=== PATIENT | female | born 1985 | race Caucasian/White ===

== ENCOUNTER → 2018-04-12 10:32 | Outpatient (CLI) | payer OTHER, SELFPAY ==
[2018-04-12 12:21] LABS: Hematocrit 32.6 % (36-46)
[2018-04-12 12:37] LABS: GTT (PREG) 1 Hour PP 50gm Dose 92 mg/dL (76-139)
== END ==
PROVIDERS: Family Provider Internal Medicine; PCP Internal Medicine; Visit Provider Specialist
DX: Z34.92 Encounter for supervision of normal pregnancy, unspecified, second trimester (principal); Z3A.26 26 weeks gestation of pregnancy
CPT/HCPCS: 36415; 82950; 85014; 85018

== ENCOUNTER 2018-05-31 10:44 | Outpatient (CLI) | payer OTHER, SELFPAY ==
--- NOTE | 2018-05-31 11:37 | PM.OBTRLD ---
Visit Information Visit Information Date of evaluation: 05/31/18 Primary OB Provider: Lola Rondon Reason for Evaluation: Yes pre-term labor Vital Signs Vital Signs: Blood pressure 137/77, pulse of 83, temperature 97.1? PFSH Medical History History of frequent headaches (Chronic ~2008) Surgical History Anesthesia (Inactive) History of third molar tooth extraction (~2002) History of tonsillectomy (~2005) Status post dilation and curettage (~2013) Family History Father Age: 61 Hypertension Mother Age: 59 Mental health problem Social History Smoking Status: Never smoker Evaluation Evaluation Baseline heart rate: 150 (both) Variability: Moderate (11-25) monitor accelerations: Present monitor decelerations: Absent Contraction Frequency (minutes): 10 Uterine Contraction Intensity: Mild Category of Tracing: I Diagnosis, Plan/Disposition Final Diagnosis (1) 33 weeks gestation of : Current Visit: No Status: Acute (2) Dichorionic diamniotic twin in third trimester: Current Visit: No Status: Acute (3) Premature uterine contractions causing threatened premature labor in third trimester: Current Visit: No Status: Acute Plan/Disposition Plan: Patient came in with back pain radiating to the front wanted to make sure she was not in premature labor. Patient with no significant contractions on the monitor. Reassured no evidence of labor. Likely musculoskeletal pain. OB Disposition: home
== END 2018-05-31 11:52 | disposition home or self-care (01) ==
LOC: LABOR 11:43 → OB 06-01 09:27
PROVIDERS: Family Provider Internal Medicine; PCP Internal Medicine; Visit Provider Specialist
DX: Z3A.33 33 weeks gestation of pregnancy (principal); O30.043 Twin pregnancy, dichorionic/diamniotic, third trimester; O47.03 False labor before 37 completed weeks of gestation, third trimester
CPT/HCPCS: 59025; G0378; G0379

== ENCOUNTER → 2018-06-02 13:44 | Outpatient (CLI) | payer OTHER, SELFPAY ==
[2018-06-03 14:42] LABS: Strep Grp B PCR NEG for Grp B Strep
== END ==
PROVIDERS: Family Provider Internal Medicine; PCP Internal Medicine; Visit Provider Specialist
DX: Z3A.34 34 weeks gestation of pregnancy (principal)
CPT/HCPCS: 87653

== ENCOUNTER 2018-06-07 17:06 | Observation (INO) | payer OTHER, SELFPAY ==
--- NOTE | 2018-06-07 | DI.US.S_ITS ---
PROCEDURE: US OB LIMITED INDICATIONS: SPOTTING; KNOWN MARGINAL PREVIA OUTSIDE/PRIOR DATING DATA: Last menstrual period (LMP): 10/06/17. LMP-based estimated date of delivery (HIRAM): 07/13/18. First dating scan (date and location): 03/11/18. Estimated date of delivery (HIRAM) from first dating scan: 07/12/18. TECHNIQUE: Real-time scanning was performed of the fetus, with image documentation. Endovaginal scanning: Yes [facility] TWINS > 14 WEEKS, 06/02/2018, 12:18. FINDINGS: Twin living intrauterine gestations are present. Twin A Presentation: Vertex right Placenta: Placental position is posterior and is low in position, and is 3.4 cm from the internal os. Amniotic fluid index: 10.9 cm, normal range is 5-24 cm. heart rate: 140 beats per minute. Twin B Presentation: Breech, left Placenta: Placenta location is anterior fundal, without previa. Amniotic fluid index is 5.4 cm, normal range is 5-24 cm. heart rate: 135 beats per minute Maternal cervical canal: 3.3 cm long. Normal lower limit is 2.5 cm. Estimated gestational age from initial scan: 35 weeks zero days. IMPRESSION: 1. Twin live intrauterine gestations as described in detail above. No evidence of placenta abruption. 2. Twin A's placenta is posterior and low in position, not significantly changed from prior study. Dictated by: Oscar Hawkins M.D. on 06/07/2018 at 20:42 Approved by: Oscar Hawkins M.D. on 06/07/2018 at 20:48
--- NOTE | 2018-06-07 18:34 | P.TNLD_ITS ---
Visit Information Visit Information Date of evaluation: 06/07/18 Primary OB Provider: Lola Rondon On-call OB Provider: Kayla Judd Reason for Evaluation: Yes other Comments/Additional reasons for admission: Pt presented with vaginal bleeding earlier this afternoon. She reports that she went to the bathroom and had some bright red blood in her tissue and on her panty liner. No significant bleeding since that time. She denies any contractions or LOF. She is still feeling her babies move regularly. She denies any vaginal bleeding earlier in her , but does have known marginal placenta previa. [facility] Medical History History of frequent headaches (Chronic ~2008) Surgical History Anesthesia (Inactive) History of third molar tooth extraction (~2002) History of tonsillectomy (~2005) Status post dilation and curettage (~2013) Family History Father Age: 61 Hypertension Mother Age: 59 Mental health problem Social History Smoking Status: Never smoker Objective Imaging US OB Limited: Radiologist's impression: 1. Twin live intrauterine gestations as described in detail above. No evidence of placenta abruption. 2. Twin A's placenta is posterior and low in position, not significantly changed from prior study. Evaluation Evaluation Comments: Baby A - baseline 145, moderate variability, accels present, no decels ; reactive Baby B - baseline 150, moderate variability, accels present, no decels; reactive [place] - uterine irritability not felt by pt, no regular contractions Diagnosis, Plan/Disposition Final Diagnosis (1) 34 weeks gestation of : Current Visit: No Status: Acute (2) Dichorionic diamniotic twin in third trimester: Current Visit: No Status: Acute (3) Marginal placenta previa: Current Visit: No Status: Acute (4) Vaginal bleeding: Current Visit: No Status: Acute Plan/Disposition Plan: 33yo at 34w6d here with vaginal bleeding in di-di twin with marginal placenta previa. Bleeding minimal, no recurrence since initial episode. FHT reassuring, no significant contractions seen on monitoring or felt by patient. As per audiovisual lead technician (although not in official report), cervical length normal. Placenta remains low-lying, but not other abnormalities seen. Discussed with Dr Salazar as well. Pt stable fo d/c home. Pelvic rest. F/U with Dr Rondon as scheduled later this week. OB Disposition: home
[2018-06-07 18:55] LABS: Bacteria Urine None Seen; WBC Urine None Seen (0-5/HPF)
[2018-06-07 18:57] LABS: Appearance Urine UA CLEAR; Bilirubin Urine UA NEGATIVE (NEGATIVE); Color Urine UA YELLOW; Glucose Urine UA NEGATIVE (Normal); Ketones Urine UA NEGATIVE (NEGATIVE); Leukocyte Esterase Urine UA NEGATIVE (NEGATIVE); Nitrite Urine UA NEGATIVE (Negative); Occult Blood Urine UA 3+ (Negative); Protein Urine UA NEGATIVE (Negative); Specific Gravity Urine UA <=1.005 (1.000-1.035); Urobilinogen Urine UA 0.2 E.U./dL (0.2)
[2018-06-07 19:04] LABS: Culture Indicated Urine Cult Not Indicated; RBC Urine 5-10/HPF (0-5/HPF)
== END 2018-06-07 20:26 | disposition home or self-care (01) ==
LOC: LABOR 17:10
PROVIDERS: Admitting Provider Specialist; Visit Provider Specialist
DX: Z3A.33 33 weeks gestation of pregnancy (principal); Z3A.34 34 weeks gestation of pregnancy; O30.043 Twin pregnancy, dichorionic/diamniotic, third trimester; O44.20 Partial placenta previa NOS or without hemorrhage, unspecified trimester; N93.9 Abnormal uterine and vaginal bleeding, unspecified
CPT/HCPCS: 59025; 59050; 76812; 76815; 81001; G0378; G0379

== ENCOUNTER 2018-06-17 15:59 | Outpatient (CLI) | payer OTHER, SELFPAY ==
--- NOTE | 2018-06-17 16:32 | PM.OBTRLD ---
Visit Information Visit Information Date of evaluation: 06/17/18 Primary OB Provider: Lola Rondon Reason for Evaluation: Yes non-stress test Comments/Additional reasons for admission: Bleeding at 36 weeks with twin gestation ON LICENSE OF [facility] Medical History History of frequent headaches (Chronic ~2008) Surgical History Anesthesia (Inactive) History of third molar tooth extraction (~2002) History of tonsillectomy (~2005) Status post dilation and curettage (~2013) Family History Father Age: 61 Hypertension Mother Age: 59 Mental health problem Social History Smoking Status: Never smoker Evaluation Evaluation Baseline heart rate: 150 Variability: Moderate (11-25) (Both) monitor accelerations: Present (Both) monitor decelerations: Absent (Both) Contraction Frequency (minutes): 5 Uterine Contraction Intensity: Mild Category of Tracing: I Diagnosis, Plan/Disposition Final Diagnosis (1) Vaginal bleeding: Current Visit: No Status: Acute (2) Marginal placenta previa: Current Visit: No Status: Acute (3) Dichorionic diamniotic twin in third trimester: Current Visit: No Status: Acute Plan/Disposition Plan: Patient will be discharged home to return if she has any increase in bleeding, pain or decreased movement. OB Disposition: home
== END 2018-06-17 16:45 | disposition home or self-care (01) ==
LOC: OB 06-20 14:01
PROVIDERS: Family Provider Internal Medicine; PCP Internal Medicine; Visit Provider Specialist
DX: Z34.83 Encounter for supervision of other normal pregnancy, third trimester (principal); O30.043 Twin pregnancy, dichorionic/diamniotic, third trimester; O44.20 Partial placenta previa NOS or without hemorrhage, unspecified trimester; N39.9 Disorder of urinary system, unspecified
CPT/HCPCS: 59025; G0378; G0379

== ENCOUNTER 2018-06-23 05:39 | Inpatient (IN) | payer OTHER, SELFPAY ==
[2018-06-23] VITALS (9 sets, daily range): BP systolic 91–122; BP diastolic 62–80; PULSE 61–67; RESP 12–14; TEMP 36.4–36.7; O2SAT 95–99
[2018-06-23 06:33] LABS: Add Manual Diff / Slide Review NO; Basophils Percent Auto 0.5 % (0-2); Hematocrit 37.5 % (36-46); Hemoglobin 12.4 g/dL (12.0-16.0); Mean Corpuscular HGB Conc 33.1 % (30-36); Mean Corpuscular Hemoglobin 28.7 PG (26-34); Mean Corpuscular Volume 86.8 fL (80-100); Monocytes Percent Auto 7.5 % (3-14); Neutrophils Absolute Auto 10200 /uL (1500-7000); Platelet Count 227 X10^3/uL (150-400); Red Blood Cell Count 4.32 X10^6/uL (4.0-5.2); Red Cell Distribution Width 14.1 % (11.6-14.8); White Blood Cell Count 13.8 X10^3/uL (4.5-11.0)
--- NOTE | 2018-06-23 06:44 | PM.PREOP ---
Pre-operative Note Interval Note Pre-op Check: Yes History & Physical exam performed today by Physician Changes: No
--- NOTE | 2018-06-23 06:46 | P.HPOB_ITS ---
OB HPI Date/Time Date of admission: 06/23/18 Date Patient Seen: 06/23/18 Time Patient Seen: 06:44 History of Present Condition Chief complaint: [id number] : 4 Para: 2 Estimated Date of Delivery: 07/13/18 Estimated Gestational Age (weeks): 37 Narrative: Charmaine Peck is a 33 year old female admitted for primary low -transverse section for twin gestation with marginal previa Indications Operative indications ( section): multiple gestation Other reason(s) for admission: Marginal previa History of Present care: good care Dating criteria: LMP confirmed by 1st trimester US Ultrasounds: normal mid trimester US Obstetrical complications: none Medical complications: none Preadmission Labs Blood type: A (+) positive -: Antibody screen: negative, GBS status: negative, HBsAG: negative and HIV: negative -: Chlamydia screen: not detected and Gonorrhea screen: not detected -: Rubella: immune PAP: Normal 1 hr GTT: 92 Prior (ies) History: 10/12/2012 40 week gestation female 6 lb 2 oz 12/19/2013 SAB 12/31/2014 at 39 week gestation 7 lb 4 oz female Evaluation Evaluation Baseline heart rate: 130 (135) Variability: Moderate (11-25) (Both) monitor accelerations: Present (Both) monitor decelerations: Absent Category of Tracing: I Laboratory results: Laboratory Tests 06/23/18 06:20 WBC 13.8 H RBC 4.32 Hgb 12.4 Hct 37.5 MCV 86.8 MCH 28.7 MCHC 33.1 RDW 14.1 Plt Count 227 Neut % (Auto) 74.0 Lymph % (Auto) 16.0 L [place] % (Auto) 7.5 Eos % (Auto) 2.0 Baso % (Auto) 0.5 Neut # (Auto) 43099 H PFSH Medical History History of frequent headaches (Chronic ~2008) Surgical History Anesthesia (Inactive) History of third molar tooth extraction (~2002) History of tonsillectomy (~2005) Status post dilation and curettage (~2013) Family History Father Age: 61 Hypertension Mother Age: 59 Mental health problem Social History Smoking Status: Never smoker Meds Home Medications Medication Instructions Recorded Confirmed Type vit-iron fum-folic ac 1 cap PO QDAY #100 cap 04/27/17 12/06/17 Rx [Mynatal] omeprazole 40 mg PO QDAY PRN #30 cap 09/06/17 12/06/17 Rx folic acid 1 mg tablet 4 mg PO DAILY 90 Days #360 tab 12/02/17 12/06/17 Rx albuterol sulfate 90 mcg/actuation 2 puff INHALATION Q4-6H PRN #1 each 04/21/18 Rx breath activated powder inhaler codeine 10 mg-guaifenesin 100 mg/5 10 ml PO Q4-6H PRN #500 ml 05/24/18 Rx mL oral liquid bupropion HCl 100 mg tablet 100 mg PO QDAY #90 tab 05/31/18 Rx Allergies Allergy/AdvReac Type Severity Reaction Status Date / Time No Known Drug Allergies Allergy Verified 05/31/18 10:02 Review of Systems Review of Systems Patient does not currently have active bleeding. No signs or symptoms of preeclampsia. All systems reviewed & are unremarkable except as noted in HPI and below Exam Vital Signs (past 8 hours): - 06/23/18 05:55 Blood Pressure 120/80 Narrative Exam Narrative: HEENT exam within normal limits. Lungs are clear to auscultation percussion. Heart is regular rate and rhythm no S3-S4 or murmurs. Abdomen is soft, gravid. The extremities are without edema and nontender Objective Labs Result Diagrams: 06/23/18 06:20 Labs: Laboratory Results - last 24 hr 06/23/18 06:20 WBC 13.8 H RBC 4.32 Hgb 12.4 Hct 37.5 MCV 86.8 MCH 28.7 MCHC 33.1 RDW 14.1 Plt Count 227 Neut % (Auto) 74.0 Lymph % (Auto) 16.0 L [place] % (Auto) 7.5 Eos % (Auto) 2.0 Baso % (Auto) 0.5 Neut # (Auto) 50785 H Assessment and Plan (1) Marginal placenta previa: Current visit: No Status: Acute (2) Dichorionic diamniotic twin in third trimester: Current visit: No Status: Acute (3) 37 weeks gestation of : Current visit: Yes Status: Acute Plan: Plan: Dichorionic diamniotic twin gestation with marginal previa with here for primary low-transverse section
[2018-06-23] MEDS: LACTATED RINGERS 1,000 ML 100 ML IV ×3 (07:01→12:45)
[2018-06-23 07:43] LABS: Hepatitis B Surface Antigen NEGATIVE s/c (NEGATIVE); Rubella Antibody IgG 45.1 IU/mL (>15)
[2018-06-23 07:50] LABS: HIV 1 and 2 Antibody NEGATIVE (NEGATIVE)
[2018-06-23] MEDS: CEFAZOLIN 2 GM/100 ML FROZ.PIGGY IV (08:05)
--- NOTE | 2018-06-23 09:01 | SUR.OPER ---
Supine on Padded OR bed, head on pillow, safety belt at thigh, arms secured on padded arm boards at <90 degrees abduction. Bump under right buttock. Legs uncrossed with pillow under knees, gel pad to heels, tape over blanket to lower legs.
[2018-06-23] MEDS: OXYTOCIN 10 UNIT/ML VIAL IM (09:08)
--- NOTE | 2018-06-23 09:20 | P.OP_ITS ---
Operative Date/Time/Diagnoses Date of procedure: 06/23/18 Time of procedure: 09:14 Pre-op diagnosis: Dichorionic, diamniotic twin gestation 37 weeks with marginal previa Post-op diagnosis: same Procedure & Clinicians Procedure: Primary low-transverse section Same procedure as scheduled: Yes Indications: Dichorionic diamniotic twin gestation with marginal previa at 37 weeks Surgeon: Lola Rondon Roll Handler: Vanessa Salazar Click Yes if Unassisted: No Anesthesia Type: Spinal Operative Notes Findings: Normal tubes ovaries and uterus. Viable male infants weighing 5 lb 10 oz and 6 lb 3 oz. Baby A Apgars 8 and 9, baby B Apgars 7 and 9 Closure Type: primary Specimen(s): other (Placenta) Applied: catheter Estimated Blood Loss (mL): 350 Blood products transfused: none Procedure in detail: The patient was brought to the operating room where she underwent a spinal for anesthesia. She was placed in a supine position with a left lateral tilt. A [place] catheter was placed. Pulsatile stockings were placed and functional throughout the case. 2 g of Ancef were given IV prior to the incision. Warming was in place. The patient was prepped and draped in usual sterile fashion. A low transverse incision was made with a scalpel and the incision was carried down to the fascial layer which was incised transversely with scissors. The midline attachments are superiorly and inferiorly. Some bleeding was controlled Bovie. The rectus muscles were in the midline and the peritoneal incision was made with no damage to internal structures. The peritoneum was incised and superiorly and inferiorly. Bladder blade was placed and a bladder flap was developed and the bladder held away from the lower uterine segment. An incision was made in the uterus with the scalpel and the incision was extended with stretching. The head of baby A was elevated out of the abdomen and with fundal pressure the baby was delivered. The infant was bulb suctioned for clear fluid and handed off to the warmer. Cord blood was collected. The bag of water of baby B was ruptured. The feet were grasped and the delivered delivered to the shoulders. A moist towel was placed around the and the arms were delivered followed by delivery of the head with fundal pressure. The infant was bulb suctioned for clear fluid and handed off to the warmer. The placenta delivered spontaneously with traction. The uterus was cleaned with clean laps. The uterine incision was closed in 2 layers of 0 chromic suture the first a running locking layer the second an imbricating layer. The bladder peritoneum was repaired with 2-0 Polysorb suture. The gutters were cleaned of any remaining fluids and ovaries and tubes were observed to be normal. Adequate hemostasis was noted after IV Pitocin and intramuscular Pitocin in the uterus. This had been an air when the Pitocin was given instead of Hemabate which was asked for. The perineum was closed with 2-0 Polysorb suture. The fascia layer was closed with 0 Polysorb suture with 2 stitches. The incision was irrigated and adequate hemostasis noted. The incision was closed with interrupted 3-0 Polysorb sutures and then a subcuticular stitch of 4-0 Polysorb suture. Steri- Strips were placed. The uterus was massaged to remove any clots. The patient went to recovery room in good condition. Counts of instruments and sponges were correct. Complications: none Condition: stable Disposition: other ( Center) Plan for aftercare: Routine post section
--- NOTE | 2018-06-23 09:35 | SUR.PHASEI ---
[id number] REPORT CALLED TO [facility] IN CENTER. PT DENIES ANY PAIN OR DISCOMFORT, BEKAH PAD CHANGED X1 IN PACU FOR MOD AMT OF DRAINAGE, AQUA CELL DRESSING WITH SCANT DRAINAGE NOTED, ZAMAN EMPTIED FOR 275 CC CLEAR YELLOW URINE, PT TO CENTER, HAND OFF OF CARE TO CENTER RN.
[2018-06-23] MEDS: ACETAMINOPHEN 325 MG TABLET 650 MG PO ×2 (12:06→18:25)
[2018-06-23] MEDS: LANOLIN OINT 7 GM 1 APPLIC TOP (12:43)
[2018-06-23] MEDS: KETOROLAC 30 MG/ML VIAL IV ×2 (15:00→21:04)
[2018-06-23] MEDS: ONDANSETRON 4 MG/2 ML INJ IV (15:15)
[2018-06-23] MEDS: METOCLOPRAMIDE 10 MG/2 ML INJ IV (16:24)
[2018-06-23] MEDS: DOCUSATE 250 MG CAPSULE PO (18:25)
[2018-06-24 00:08] VITALS: TEMP 36.5
[2018-06-24] MEDS: ACETAMINOPHEN 325 MG TABLET 650 MG PO ×4 (00:08→20:46)
[2018-06-24 00:30] VITALS: TEMP 36.7
[2018-06-24 03:16] VITALS: TEMP 36.7
[2018-06-24] MEDS: KETOROLAC 30 MG/ML VIAL IV (03:16)
[2018-06-24] MEDS: buPROPion 100 MG TABLET PO (08:35)
[2018-06-24] MEDS: IBUPROFEN 600 MG TABLET PO ×3 (11:51→23:45)
--- NOTE | 2018-06-24 13:26 | P.PN_ITS ---
Subjective Date Patient Seen: 06/24/18 Time Patient Seen: 13:24 Interval history: Postoperative day #1 Primary section for twins with marginal placenta previa. Patient is ambulatory. She is urinating after [place] catheter removed. She denies any nausea. She denies any signs or symptoms of preeclampsia. Her pain is tolerable. Exam Vital Signs (past 8 hours): Blood pressure 136/61, pulse 77, temperature 98.1? Oxygen Delivery Method Room Air Narrative Exam Narrative: Patient's abdomen is soft, appropriately tender. Uterus is firm , at U, appropriately tender. Mild lochia. Extremities without edema and nontender. Objective Labs Result Diagrams: 06/23/18 06:20 Assessment & Plan (1) Delivery by section using transverse incision of lower segment of uterus: Current visit: Yes Status: Acute Plan: Assessment/Plan Narrative: Patient is doing well post section. Plan is for routine post C- section care.
[2018-06-24 15:21] LABS: Add Manual Diff / Slide Review NO; Basophils Percent Auto 0.2 % (0-2); Eosinophils Percent Auto 1.3 % (2-4); Hematocrit 33.9 % (36-46); Hemoglobin 11.4 g/dL (12.0-16.0); Lymphocytes Percent Auto 11.2 % (25-40); Mean Corpuscular HGB Conc 33.5 % (30-36); Mean Corpuscular Hemoglobin 29.1 PG (26-34); Mean Corpuscular Volume 86.8 fL (80-100); Monocytes Percent Auto 4.7 % (3-14); Neutrophils Absolute Auto 15600 /uL (1500-7000); Neutrophils Percent Auto 82.6 % (50-75); Platelet Count 261 X10^3/uL (150-400); Red Blood Cell Count 3.91 X10^6/uL (4.0-5.2); Red Cell Distribution Width 14.1 % (11.6-14.8); White Blood Cell Count 18.8 X10^3/uL (4.5-11.0)
[2018-06-24] MEDS: guaiFENesin Liquid 100 MG/5 ML UDC 10 MG PO ×2 (17:40→23:48)
[2018-06-24 18:40] LABS: RPR Screen Nonreactive (Nonreactive)
[2018-06-24] MEDS: DOCUSATE 250 MG CAPSULE PO (20:47)
[2018-06-25] MEDS: ACETAMINOPHEN 325 MG TABLET 650 MG PO (07:07)
[2018-06-25] MEDS: IBUPROFEN 600 MG TABLET PO (07:07)
[2018-06-25] MEDS: buPROPion 100 MG TABLET PO (09:39)
[2018-06-25] MEDS: DOCUSATE 250 MG CAPSULE PO (09:40)
--- NOTE | 2018-06-25 10:56 | P.DS_ITS ---
Discharge Providers Date of admission: 06/23/18 05:39 Primary care physician: BERNADETTE Ingram Consults: 06/23/18 09:04 Consult to Energy And Conservation Technician Routine Comment: Discharge provider: Lola Rondon MD Discharge Date: 06/25/18 Summary Date Patient Seen: 06/25/18 Time Patient Seen: 10:55 Hospital Course: Patient was admitted for primary section for twin gestation with marginal previa at 37 weeks. Both the mother and infant are doing well. Patient is ambulatory. Tolerating regular diet. Passing gas. Pain is under control. Blood pressure 126/67, pulse of 90, temperature 36.7? Patient's abdomen is soft, nontender. Uterus is firm, at U, appropriately tender. Incision is clean dry and intact. Mild lochia. Extremities without edema and nontender. Patient is Rh positive and rubella immune Discharge Diagnosis (1) Delivery by section using transverse incision of lower segment of uterus: Status: Acute Time Spent with Patient Total time spent providing and/or coordinating discharge services: Objective Labs Result Diagrams: 06/24/18 14:12 Labs: Laboratory Results - last 24 hr 06/23/18 06/24/18 06:20 14:12 WBC 18.8 H RBC 3.91 L Hgb 11.4 L Hct 33.9 L MCV 86.8 MCH 29.1 MCHC 33.5 RDW 14.1 Plt Count 261 Neut % (Auto) 82.6 H Lymph % (Auto) 11.2 L [place] % (Auto) 4.7 Eos % (Auto) 1.3 L Baso % (Auto) 0.2 Neut # (Auto) 60055 H Serum VDRL Nonreactive Discharge Plan Discharge Plan Patient Disposition: Home Discharge Med Rec/Prescriptions Prescriptions: New ibuprofen 600 mg Tablet 600 mg PO Q6H PRN (Reason: As Needed For Fever/Mild Pain) Qty: 30 RF: 0 Continue vit-iron fum-folic ac [Mynatal] 1 EACH capsule 1 cap PO QDAY Qty: 100 RF: 3 codeine-guaifenesin [Cheratussin AC] 10-100 mg/5 mL liquid 10 ml PO Q4-6H PRN (Reason: cough) Qty: 500 RF: 0 bupropion HCl 100 mg tablet 100 mg PO QDAY Qty: 90 RF: 3 albuterol sulfate 90 mcg/actuation aerosol powdr breath activated 2 puff INHALATION Q4-6H PRN (Reason: shortness of breath or wheezing) Qty: 1 RF: 4 Discontinued omeprazole 40 MG capsule,delayed release(DR/EC) 40 mg PO QDAY PRNQty: 30 RF: 1 folic acid 1 mg tablet 4 mg PO DAILY 90 Days Qty: 360 RF: 2 Follow up/Referrals: Lola Rondon MD [Physician] - (One week incision check okay with nurse on , [address] Rondon) Dulce Chauhan ARNP [Primary Care Provider] - Provider Discharge Instructions Diet: Regular Activity: Nothing in vagina for 4 weeks. Do not lift over 40 lb. Skin/Wound/Dressing Care Report to your healthcare provider any signs of infection, such as:: chills, fever, increased pain and unusual redness Dressing: Leave dressing on until 1 week post up incision check Discharge Data Primary Care Provider: Dulce Chauhan Attending Provider: Lola Rondon Admit Date/Time: 06/23/18 05:39
[2018-06-25 12:09] LABS: HSV 1 IgM Screen Negative (Negative); HSV 2 IgM Screen Negative (Negative)
[2018-06-25 12:25] VITALS: BP 121/77; PULSE 66; RESP 14; TEMP 36.7
== END 2018-06-25 14:55 | disposition home or self-care (01) | DRG 788 ==
PROVIDERS: Admitting Provider Specialist; Family Provider Internal Medicine; PCP Internal Medicine; Visit Provider Specialist
PROC: 10D00Z1 Extraction of Products of Conception, Low, Open Approach (ICD-10-PCS; CPT 59514; principal; 2018-06-23 07:45)
DX: O44.23 Partial placenta previa NOS or without hemorrhage, third trimester (principal); Z3A.37 37 weeks gestation of pregnancy; Z37.2 Twins, both liveborn; O30.043 Twin pregnancy, dichorionic/diamniotic, third trimester
CPT/HCPCS: 36415; 59050; 59510; 59514; 80055; 85025; 86694; 86703; 86850; 86900; 86901; 94762; J0690; J1885; J2274; J2405; J2590; J2765; J3010